=== PATIENT | female | born 1950 | race Caucasian/White ===

== ENCOUNTER 2023-08-04 16:27 | Emergency (ER) | payer MEDICARE, OTHER, SELFPAY ==
--- NOTE | ~2023-08-04 | XR_ITS ---
EXAMINATION: XR foot LT min 3V DATE: 08/04/2023 17:02 INDICATION: Fall. TECHNIQUE: 4 views of left foot were obtained. COMPARISON: None. FINDINGS: There is an oblique fracture of distal fibula with medial aspect of the fracture line at th e level of the tibial plafond. The distal fracture fragment demonstrates 2 mm posterolateral displace ment. There are changes of bunionectomy. 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 There are enthesophytes at the posterior and plantar aspects of calcanea l tuberosity. IMPRESSION: 1. Oblique fracture of distal fibula. Reviewed, dictated and finalized at location E.
--- NOTE | ~2023-08-04 | XR_ITS ---
EXAMINATION: XR ankle LT min 3V DATE: 08/04/2023 17:02 INDICATION: Left ankle injury. Fall. TECHNIQUE: 4 views of left ankle were obtained. COMPARISON: None. FINDINGS: There is an oblique fracture of distal fibula with medial aspect of the fracture line at th e level of the tibial plafond. The distal fracture fragment demonstrates 2 mm posterolateral displace ment. There is mild osteoarthritis of talonavicular joint. There are enthesophytes at the posterior a nd plantar aspects of calcaneal tuberosity. IMPRESSION: 1. Oblique fracture of distal fibula. Reviewed, dictated and finalized at location E.
[2023-08-04 16:43] VITALS: BP 148/65; PULSE 72; RESP 18; TEMP 36.9; O2SAT 100
--- NOTE | 2023-08-04 16:43 | ED.EXTPRO ---
HPI - Extremity Problem General Chief complaint: Extremity Problem,Nontraumatic Stated complaint: Left Ankle Injury Time Seen by Provider: 08/04/23 16:46 Source: patient Mode of arrival: ambulatory Limitations: no limitations History of Present Illness HPI Narrative: [age] year old female presented for complaint of left ankle/foot swelling and bruising since injury 4 days ago. States the injury occurred when she got tangled in a blanket when she started walking. Reports mild pain to the left upper ankle (lateral). Rates 3/10. Denies significant pain to the foot. Has been walking on it without any difficulty, denies decreased ROM. Taking ibuprofen and applied ice and wrapped it at onset. Related Data Home Medications Medication Instructions Recorded Confirmed brimonidine 0.2 % eye drops drp 08/04/23 cyclosporine 0.05 % eye drops in a drp 08/04/23 dropperette (Restasis) estradiol 2 mg tablet mg 08/04/23 progesterone micronized 100 mg mg 08/04/23 capsule Allergies Allergy/AdvReac Type Severity Reaction Status Date / Time Penicillins Allergy Hives Verified 08/04/23 16:44 Review of Systems Review of Systems: CONSTITUTIONAL: Denies body aches, fever, chills CARDIOVASCULAR: Denies chest pain, palpitations, or edema. RESPIRATORY: Denies cough or dyspnea. SKIN: Denies rash, itching, or wounds. MUSCULOSKELETAL: Reports left ankle pain NEUROLOGIC: Denies headache, numbness, tingling, or weakness. All systems reviewed & are unremarkable except as noted in HPI and below PMFSH Comments At time of signature, I have reviewed and agree with nursing past medical, surgical, social and family history unless otherwise noted. Please see nursing chart for further information. There is no relevant family history pertinent to the presenting complaint Exam Narrative: GENERAL: Well-appearing. CHEST: Speaks in full sentences. No respiratory distress. HEART: Regular rate and rhythm. Normal and equal peripheral pulses. EXTREMITIES: Left foot/ankle has normal strength and sensation, normal range of motion at ankle. Moderate swelling and bruising to the foot; bruising extends from distal metatarsals to lateral foot/heel, Tender with palpation to distal fibula. No open wounds, or obvious deformity; alignment normal, pulse palpable and equal bilaterally, skin warm, dry, pink. SKIN: Warm, dry, Capillary refill less than 3 seconds. NEURO: Alert and oriented x3. PSYCH: Normal mood and affect Course Course Emergency Course: Patient is aware of diagnosis, understands and agrees to treatment plan. Anticipatory guidance given. Patient agrees to follow-up as directed and is aware of reasons to seek care at the emergency department. Portions of this record may have been created with voice recognition software Level of Care: Express Care Visit Vital Signs Vital signs: Vital Signs Temperature 98.4 F 08/04/23 16:43 Pulse Rate 72 08/04/23 16:43 Respiratory Rate 18 08/04/23 16:43 Blood Pressure 148/65 H 08/04/23 16:43 Pulse Oximetry 100 08/04/23 16:43 Oxygen Delivery Room Air 08/04/23 16:43 Temperature 98.4 F 08/04/23 16:45 Pulse Rate 72 08/04/23 16:45 Respiratory Rate 18 08/04/23 16:45 Blood Pressure 148/65 H 08/04/23 16:45 Pulse Oximetry 100 08/04/23 16:45 Oxygen Delivery Room Air 08/04/23 16:45 Reviewed MDM - Extremity (Nontraumatic) MDM Narrative Medical decision making narrative: Results of x-ray reviewed with patient; oblique fx fibula. Pt lives alone, and would not be able to tolerate crutches. Notified Dr Ferreira who advised walking boot, which pt is instructed to purchase tomorrow morning and f/u with ortho. NIKKI wrap and ice applied. Discussed physical exam findings, Advised supportive measures and signs/symptoms to go to the ER. Pt is appropriate for outpt treatment and f/u. Differential Diagnosis Differential diagnosis: Likely other (ankle fracture, sprain/st
[2023-08-04 16:45] VITALS: BP 148/65; PULSE 72; RESP 18; TEMP 36.9; O2SAT 100
--- NOTE | 2023-08-04 17:51 | PC.NURSE ---
entered results of a different patient
== END 2023-08-04 17:52 | disposition home or self-care (01) ==
PROVIDERS: Emergency Provider Nurse Practitioner Family
DX: S82.832A Other fracture of upper and lower end of left fibula, initial encounter for closed fracture (principal); X58.XXXA Exposure to other specified factors, initial encounter
CPT/HCPCS: 73610; 73630; 99204; G0463